=== PATIENT | female | born 2000 | race Caucasian/White ===

== ENCOUNTER 2020-10-29 20:12 | Emergency (ER) | payer OTHER ==
[~2020-10-29] VITALS: Ht 167.6 cm; Wt 79.8 kg
[2020-11-01] MEDS ORDERED: ACETAMINOPHEN650 M2 PO (00:07)
[2020-11-01] MEDS ORDERED: CEFUROXIME500 MG PO (00:07)
== END 2020-10-29 23:38 | disposition home or self-care (01) ==
LOC: ER 20:12
DX: O20.9 Hemorrhage in early pregnancy, unspecified (principal); Z3A.01 Less than 8 weeks gestation of pregnancy

== ENCOUNTER → 2020-10-31 | Emergency (ER) | payer OTHER ==
[~2020-10-31] VITALS: Ht 167.6 cm; Wt 79.8 kg
[~2020-10-31] MED LIST: ACETAMINOPHEN650 M2 PO; CEFUROXIME500 MG PO
== END | disposition home or self-care (01) ==
LOC: ER 18:47
DX: N93.9 Abnormal uterine and vaginal bleeding, unspecified (principal)